=== PATIENT | male | born 1975 | race Caucasian/White ===

== ENCOUNTER 2017-11-16 17:46 | Emergency (ER) | payer SELFPAY ==
[2017-11-16] MEDS ORDERED: Diphtheria,Pertussis(Acell),Tetanus Vaccine 0.5 ML Syringe IM ONE (18:14)
[2017-11-16] MEDS ORDERED: Ketorolac 60 MG/2 ML SDV IM ONE (18:14)
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
[2017-11-16 19:26] LABS: CHLORIDE,CL 107 mmol/L (98-110); SODIUM,NA 137 mmol/L (136-146)
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
== END 2017-11-16 19:43 | disposition home or self-care (01) ==
LOC: MW.ED 17:46
DX: S06.9X9A Unspecified intracranial injury with loss of consciousness of unspecified duration, initial encounter (principal); S00.83XA Contusion of other part of head, initial encounter; S00.431A Contusion of right ear, initial encounter; S40.022A Contusion of left upper arm, initial encounter; S40.021A Contusion of right upper arm, initial encounter; S80.12XA Contusion of left lower leg, initial encounter; S80.11XA Contusion of right lower leg, initial encounter; F17.210 Nicotine dependence, cigarettes, uncomplicated; Z23 Encounter for immunization; Z88.0 Allergy status to penicillin; Y04.0XXA Assault by unarmed brawl or fight, initial encounter; Y99.0 Civilian activity done for income or pay
CPT/HCPCS: 36415; 70450; 73030; 80053; 85025; 90471; 96372; 99284; J1885

== ENCOUNTER 2018-04-27 01:14 | Emergency (ER) | payer SELFPAY ==
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
== END 2018-04-27 01:40 | disposition home or self-care (01) ==
LOC: MW.ED 01:14
DX: Z02.89 Encounter for other administrative examinations (principal); I10 Essential (primary) hypertension; Z88.0 Allergy status to penicillin
CPT/HCPCS: 99283

== ENCOUNTER 2019-06-09 10:43 | Emergency (ER) | payer SELFPAY ==
--- NOTE | 2019-06-09 10:59 | EDM.PDOC ---
ED HPI GENERAL MEDICAL PROBLEM - General Chief Complaint: Back Pain or Injury Stated Complaint: BACK PAIN Time Seen by Provider: 06/09/19 10:58 Source of Information: Reports: Patient History Limitations: Reports: No Limitations - History of Present Illness INITIAL COMMENTS - FREE TEXT/NARRATIVE: HISTORY AND PHYSICAL: History of present illness: Patient is a 43-year-old male presents to the ED with complaint of back injury. Patient states that 5 days ago he was on top of a pavement roller, it started moving so he jumped off. When he jumped he was hit in the back by the roller and projected 4 feet forward. He was not crushed by the roller. He states that he had an area of swelling to his low back about the size of a watermelon that has gone down but it is painful to touch. He denies any lower extremity pain/ tingling/weakness/numbness, saddle anesthesia, loss of bowel or bladder control , chest pain, shortness of breath, abdominal pain. He denies significant past medical history. Review of systems: As per history of present illness and below otherwise all systems reviewed and negative. Past medical history: As per history of present illness and as reviewed below otherwise noncontributory. Surgical history: As per history of present illness and as reviewed below otherwise noncontributory. Social history: No reported history of drug or alcohol abuse. Family history: As per history of present illness and as reviewed below otherwise noncontributory. Physical exam: General: Patient sitting comfortably in no acute distress and nontoxic appearing HEENT: Atraumatic, normocephalic, pupils reactive, negative for conjunctival pallor or scleral icterus, mucous membranes moist, throat clear, neck supple, nontender, trachea midline. No meningeal signs. Lungs: Clear to auscultation, breath sounds equal bilaterally, chest nontender. Heart: S1S2, regular, negative for clicks, rubs, or overt murmur. Abdomen: Soft, nondistended, nontender. Negative for masses or hepatosplenomegaly. Negative for costovertebral tenderness. No rigidity, rebound , guarding. Pelvis: Stable nontender. Genitourinary: Deferred. Rectal: Deferred. Spine: There is a large area of ecchymosis from the midback down to the top of the buttock extending all the way across from the left to right flanks. There is a [id number] area of fluid collection in the center of this ecchymosis with some serous weeping noted. Extremities: Atraumatic, negative for cords or calf pain. Neurovascular unremarkable. Lower extremity strength 5/5. No deficits noted. Neuro: Awake, alert, oriented. Cranial nerves II through XII unremarkable. Cerebellum unremarkable. Motor and sensory unremarkable throughout. Exam nonfocal. Notes: Dr. Mccollum consulted in ED and reviewed CT. Patient will follow up with her in 1 week. Diagnostics: CBC, CMP, PT/INR, PTT, UA, CT chest/abdomen/pelvis w/ contrast Therapeutics: none Prescriptions: none Impression: blunt trauma, subcutaneous hematoma low back, L4 spinous process fracture Plan: Follow up with Dr. Mccollum as discussed Return to ED as needed as discussed Definitive disposition and diagnosis as appropriate pending reevaluation and review of above. Lower Back Pain Score (Numeric/FACES): 3 - Related Data Allergies Allergy/AdvReac Type Severity Reaction Status Date / Time Penicillins Allergy Itching Verified 06/09/19 11:01 Home Meds: Home Meds . [No Known Home Meds] 11/16/17 [History] Past Medical History HEENT History: Reports: None Cardiovascular History: Reports: None Respiratory History: Reports: None Gastrointestinal History: Reports: None Genitourinary History: Reports: None Musculoskeletal History: Reports: Other (See Below) Other Musculoskeletal History: broke C7 Neurological History: Reports: None Psychiatric History: Reports: None Endocrine/Metabolic History: Reports: None Hematologic History: Reports: None Immunologic History: Reports: None Oncologic (Cancer) History: Reports: None Dermatologic History: Reports: None - Infectious Disease History Infectious Disease History: Reports: Chicken Pox - Past Surgical History Head Surgeries/Procedures: Reports: None HEENT Surgical History: Reports: None Cardiovascular Surgical History: Reports: None Respiratory Surgical History: Reports: None GI Surgical History: Reports: None Male Surgical History: Reports: None Endocrine Surgical History: Reports: None Neurological Surgical History: Reports: None Musculoskeletal Surgical History: Reports: None Oncologic Surgical History: Reports: None Dermatological Surgical History: Reports: None Social & Family History - Family History Family Medical History: Noncontributory - Caffeine Use Caffeine Use: Reports: Coffee, Energy Drinks ED ROS GENERAL - Review of Systems Review Of Systems: ROS reveals no pertinent complaints other than HPI. ED EXAM,LOWER BACK PAIN/INJURY - Physical Exam Exam: See Below (see dictation) Course - Vital Signs Last Recorded V/S: Last Vital Signs Temp 98.2 F 06/09/19 10:54 Pulse 91 06/09/19 10:54 Resp 18 06/09/19 10:54 BP 162/94 H 06/09/19 10:54 Pulse Ox 99 06/09/19 10:54 - Orders/Labs/Meds Orders: Active Orders 24 hr Category Date Time Status Notify Provider Consults [RC] ASDIRECTED Care 06/09/19 11:19 Active Consult to Physician [CONS] Stat Cons 06/09/19 11:19 Active UA RFX LEOPOLDO AND CULT IF INDIC [URIN] Stat Lab 06/09/19 11:07 Ordered Sodium Chloride 0.9% [Normal Saline] 1,000 ml Med 06/09/19 11:30 Active IV STAT Sodium Chloride 0.9% [Saline Flush] Med 06/09/19 11:07 Active 10 ml FLUSH ASDIRECTED PRN Sodium Chloride 0.9% [Saline Flush] Med 06/09/19 11:07 Active 2.5 ml FLUSH ASDIRECTED PRN Saline Lock Insert [OM.PC] Stat Oth 06/09/19 11:07 Ordered Medication Orders Sodium Chloride (Normal Saline) 1,000 mls @ 999 mls/hr IV STAT TOYIN Last Admin: 06/09/19 11:20 Dose: 999 mls/hr Sodium Chloride (Saline Flush) 10 ml FLUSH ASDIRECTED PRN PRN Reason: Keep Vein Open Last Admin: 06/09/19 11:20 Dose: 10 ml Sodium Chloride (Saline Flush) 2.5 ml FLUSH ASDIRECTED PRN PRN Reason: Keep Vein Open Last Admin: 06/09/19 11:20 Dose: 2.5 ml Labs: Laboratory Tests 06/09/19 06/09/19 06/09/19 Range/Units 11:14 11:14 11:14 WBC 9.03 (4.0-11.0) K/uL RBC 3.01 L (4.50-5.90) M/uL Hgb 9.6 L (13.0-17.0) g/dL Hct 28.9 L (38.0-50.0) % MCV 96.0 (80.0-98.0) fL MCH 31.9 (27.0-32.0) pg MCHC 33.2 (31.0-37.0) g/dL RDW Std Deviation 49.2 (28.0-62.0) fl RDW Coeff of Yany 14 (11.0-15.0) % Plt Count 221 (150-400) K/uL MPV 9.90 (7.40-12.00) fL Neut % (Auto) 70.0 (48.0-80.0) % Lymph % (Auto) 20.2 (16.0-40.0) % [place] % (Auto) 7.4 (0.0-15.0) % Eos % (Auto) 2.1 (0.0-7.0) % Baso % (Auto) 0.3 (0.0-1.5) % Neut # (Auto) 6.3 H (1.4-5.7) K/uL Lymph # (Auto) 1.8 (0.6-2.4) K/uL [place] # (Auto) 0.7 (0.0-0.8) K/uL Eos # (Auto) 0.2 (0.0-0.7) K/uL Baso # (Auto) 0.0 (0.0-0.1) K/uL Nucleated RBC % 0.0 /100WBC Nucleated RBCs # 0 K/uL INR 0.90 APTT 23.6 (18.6-31.3) SEC Sodium 142 (136-148) mmol/L Potassium 4.4 (3.5-5.1) mmol/L Chloride 107 (98-107) mmol/L Carbon Dioxide 27.9 (21.0-32.0) mmol/L BUN 13 (7.0-18.0) mg/dL Creatinine 1.0 (0.8-1.3) mg/dL Est Cr Clr Drug Dosing 122.51 mL/min Estimated GFR (MDRD) > 60.0 ml/min Glucose 99 (74-106) mg/dL Calcium 9.2 (8.5-10.1) mg/dL Total Bilirubin 0.5 (0.2-1.0) mg/dL AST 26 (15-37) IU/L ALT 41 (14-63) IU/L Alkaline Phosphatase 60 (46-116) U/L Total Protein 7.1 (6.4-8.2) g/dL Albumin 3.4 (3.4-5.0) g/dL Globulin 3.7 (2.6-4.0) g/dL Albumin/Globulin Ratio 0.9 (0.9-1.6) Meds: Medications Generic Name Dose Route Start Last Admin Trade Name Freq PRN Reason Stop Dose Admin Sodium Chloride 1,000 mls @ 999 mls/hr 06/09/19 11:30 06/09/19 11:20 Normal Saline IV 999 mls/hr STAT TOYIN Administration Sodium Chloride 10 ml 06/09/19 11:07 06/09/19 11:20 Saline Flush FLUSH 10 ml ASDIRECTED PRN Administration Keep Vein Open Sodium Chloride 2.5 ml 06/09/19 11:07 06/09/19 11:20 Saline Flush FLUSH 2.5 ml ASDIRECTED PRN Administration Keep Vein Open Discontinued Medications Generic Name Dose Route Start Last Admin Trade Name Freq PRN Reason Stop Dose Admin Iopamidol 100 ml 06/09/19 12:35 06/09/19 12:35 Isovue Multipack-370 (76%) IVPUSH 06/09/19 12:36 100 ml ONETIME ONE Administration Departure - Departure Time of Disposition: 13:13 Disposition: Home, Self-Care 01 Condition: Good Clinical Impression: Subcutaneous hematoma, Blunt trauma, Spinous process fracture - Discharge Information Referrals: PCP,Unknown [Primary Care Provider] - Sydnie Mccollum MD [Physician] - 1 Week Forms: ED Department Discharge Additional Instructions: The following information is given to patients seen in the emergency department who are being discharged to home. This information is to outline your options for follow-up care. We provide all patients seen in our emergency department with a follow-up referral. The need for follow-up, as well as the timing and circumstances, are variable depending upon the specifics of your emergency department visit. If you don't have a primary care physician on staff, we will provide you with a referral. We always advise you to contact your personal physician following an emergency department visit to inform them of the circumstance of the visit and for follow-up with them and/or the need for any referrals to a consulting specialist. The emergency department will also refer you to a specialist when appropriate. This referral assures that you have the opportunity for follow-up care with a specialist. All of these measure are taken in an effort to provide you with optimal care, which includes your follow-up. Under all circumstances we always encourage you to contact your private physician who remains a resource for coordinating your care. When calling for follow-up care, please make the office aware that this follow-up is from your recent emergency room visit. If for any reason you are refused follow-up, please contact the [facility] Emergency Department at and asked to speak to the emergency department charge nurse. [facility] [address] [place] [address] [id number] Activity as tolerated Follow up with Dr. Mccollum as discussed Return to ED as needed as discussed - My Orders Last 24 Hours: My Active Orders 06/09/19 11:07 UA RFX LEOPOLDO AND CULT IF INDIC [URIN] Stat Sodium Chloride 0.9% [Saline Flush] 10 ml FLUSH ASDIRECTED PRN Sodium Chloride 0.9% [Saline Flush] 2.5 ml FLUSH ASDIRECTED PRN Saline Lock Insert [OM.PC] Stat 06/09/19 11:19 Notify Provider Consults [RC] ASDIRECTED Consult to Physician [CONS] Stat 06/09/19 11:30 Sodium Chloride 0.9% [Normal Saline] 1,000 ml IV STAT - Assessment/Plan Last 24 Hours: My Active Orders 06/09/19 11:07 UA RFX LEOPOLDO AND CULT IF INDIC [URIN] Stat Sodium Chloride 0.9% [Saline Flush] 10 ml FLUSH ASDIRECTED PRN Sodium Chloride 0.9% [Saline Flush] 2.5 ml FLUSH ASDIRECTED PRN Saline Lock Insert [OM.PC] Stat 06/09/19 11:19 Notify Provider Consults [RC] ASDIRECTED Consult to Physician [CONS] Stat 08/17/19 11:30 Sodium Chloride 0.9% [Normal Saline] 1,000 ml IV STAT
[2019-06-09] MEDS ORDERED: Sodium Chloride 0.9% 10 ML Syringe FLUSH PRN (11:07)
[2019-06-09] MEDS ORDERED: Sodium Chloride 0.9% 2.5 ML Syringe FLUSH PRN (11:07)
[2019-06-09] MEDS ORDERED: Sodium Chloride 0.9% 1,000 ML IV SCH (11:30)
[2019-06-09 11:46] LABS: CHLORIDE,CL 107 mmol/L (98-107); SODIUM,NA 142 mmol/L (136-148)
--- NOTE | 2019-06-09 12:19 | PCM.CONS ---
H&P History of Present Illness - General Date of Service: 06/09/19 Source of Information: Patient History Limitations: Reports: No Limitations - History of Present Illness Initial Comments - Free Text/Narative: Patient is a 43 year old male who fell off some heavy equipment on Tuesday. He denies LOC but fell onto a object striking his lower back. It has been painful but this has been controlled with ibuprofen OTC. He denies loss of motor function, sensory deficits, or paresthesias. He denies bowel or bladder issues. He had a friend over who looked at the area and was concerned about the amount of swelling and bruising. He came to the ER to be examined. Lower Back Pain Score (Numeric/FACES): 3 - Related Data Allergies/Adverse Reactions: Allergies Allergy/AdvReac Type Severity Reaction Status Date / Time Penicillins Allergy Itching Verified 06/09/19 11:01 Home Medications: Home Meds . [No Known Home Meds] 11/16/17 [History] Past Medical History HEENT History: Reports: None Cardiovascular History: Reports: None Respiratory History: Reports: None Gastrointestinal History: Reports: None Genitourinary History: Reports: None Musculoskeletal History: Reports: Other (See Below) Other Musculoskeletal History: broke C7 Neurological History: Reports: None Psychiatric History: Reports: None Endocrine/Metabolic History: Reports: None Hematologic History: Reports: None Immunologic History: Reports: None Oncologic (Cancer) History: Reports: None Dermatologic History: Reports: None - Infectious Disease History Infectious Disease History: Reports: Chicken Pox - Past Surgical History Head Surgeries/Procedures: Reports: None HEENT Surgical History: Reports: None Cardiovascular Surgical History: Reports: None Respiratory Surgical History: Reports: None GI Surgical History: Reports: None Male Surgical History: Reports: None Endocrine Surgical History: Reports: None Neurological Surgical History: Reports: None Musculoskeletal Surgical History: Reports: None Oncologic Surgical History: Reports: None Dermatological Surgical History: Reports: None Social & Family History - Family History Family Medical History: Noncontributory - Tobacco Use Smoking Status *Q: Current Every Day Smoker Tobacco Use Within Last Twelve Months: Smokeless Tobacco Years of Tobacco use: 25 Packs/Tins Daily: 0.5 Used Tobacco, but Quit: No - Caffeine Use Caffeine Use: Reports: Coffee, Energy Drinks - Recreational Drug Use Recreational Drug Use: Yes Drug Use in Last 12 Months: Yes Recreational Drug Type: Reports: Marijuana/Hashish Recreational Drug Use Frequency: Daily H&P Review of Systems - Review of Systems: Review Of Systems: ROS reveals no pertinent complaints other than HPI. Exam - Exam Exam: See Below - Vital Signs Vital Signs: Last Vital Signs Temp 36.8 C 06/09/19 10:54 Pulse 91 06/09/19 10:54 Resp 18 06/09/19 10:54 BP 162/94 H 06/09/19 10:54 Pulse Ox 99 06/09/19 10:54 Weight: 113.398 kg - Exam General: Alert, Oriented, Cooperative HEENT: Conjunctiva Clear, Hearing Intact, Mucosa Moist & [place], Nares Patent, Normal Nasal Septum, Pupils Equal, Pupils Reactive Lungs: Normal Respiratory Effort Cardiovascular: Regular Rate GI/Abdominal Exam: Soft, Non-Tender, No Distention, No Mass Back Exam: Other (ecchymosis across lower back and a swelling/fluctant area over the sacrum. Some small blisters over the sacrum that have burst. No cellulitis. ). No: Decreased Range of Motion, Muscle Spasm, Paraspinal Tenderness, Vertebral Tenderness Extremities: Normal Inspection, Normal Range of Motion Neurological: Reflexes Unequal Neuro Extensive - Mental Status: Alert Neuro Extensive - Motor, Sensory, Reflexes: No: Motor/Sensory Deficits Psychiatric: Alert, Normal Affect, Normal Mood - Patient Data Lab Results Last 24 hrs: Laboratory Results - last 24 hr 06/09/19 06/09/19 06/09/19 Range/Units 11:14 11:14 11:14 WBC 9.03 (4.0-11.0) K/uL RBC 3.01 L (4.50-5.90) M/uL Hgb 9.6 L (13.0-17.0) g/dL Hct 28.9 L (38.0-50.0) % MCV 96.0 (80.0-98.0) fL MCH 31.9 (27.0-32.0) pg MCHC 33.2 (31.0-37.0) g/dL RDW Std Deviation 49.2 (28.0-62.0) fl RDW Coeff of Yany 14 (11.0-15.0) % Plt Count 221 (150-400) K/uL MPV 9.90 (7.40-12.00) fL Neut % (Auto) 70.0 (48.0-80.0) % Lymph % (Auto) 20.2 (16.0-40.0) % [place] % (Auto) 7.4 (0.0-15.0) % Eos % (Auto) 2.1 (0.0-7.0) % Baso % (Auto) 0.3 (0.0-1.5) % Neut # (Auto) 6.3 H (1.4-5.7) K/uL Lymph # (Auto) 1.8 (0.6-2.4) K/uL [place] # (Auto) 0.7 (0.0-0.8) K/uL Eos # (Auto) 0.2 (0.0-0.7) K/uL Baso # (Auto) 0.0 (0.0-0.1) K/uL Nucleated RBC % 0.0 /100WBC Nucleated RBCs # 0 K/uL INR 0.90 APTT 23.6 (18.6-31.3) SEC Sodium 142 (136-148) mmol/L Potassium 4.4 (3.5-5.1) mmol/L Chloride 107 (98-107) mmol/L Carbon Dioxide 27.9 (21.0-32.0) mmol/L BUN 13 (7.0-18.0) mg/dL Creatinine 1.0 (0.8-1.3) mg/dL Est Cr Clr Drug Dosing 122.51 mL/min Estimated GFR (MDRD) > 60.0 ml/min Glucose 99 (74-106) mg/dL Calcium 9.2 (8.5-10.1) mg/dL Total Bilirubin 0.5 (0.2-1.0) mg/dL AST 26 (15-37) IU/L ALT 41 (14-63) IU/L Alkaline Phosphatase 60 (46-116) U/L Total Protein 7.1 (6.4-8.2) g/dL Albumin 3.4 (3.4-5.0) g/dL Globulin 3.7 (2.6-4.0) g/dL Albumin/Globulin Ratio 0.9 (0.9-1.6) Result Diagrams: 06/09/19 11:14 06/09/19 11:14 Consult PN Assessment/Plan Procedures: Procedures COMPLETE CBC W/AUTO DIFF WBC (11/16/17) COMPREHEN METABOLIC PANEL (11/16/17) CT HEAD/BRAIN W/O DYE (11/16/17) EMERGENCY DEPT VISIT (04/27/18) EMERGENCY DEPT VISIT (11/16/17) IMMUNIZATION ADMIN (11/16/17) ROUTINE VENIPUNCTURE (11/16/17) THER/PROPH/DIAG INJ SC/IM (11/16/17) X-RAY EXAM OF SHOULDER (11/16/17) (1) Spinous process fracture SNOMED Code(s): 33617668 Code(s): XLR4525 - (2) Subcutaneous hematoma SNOMED Code(s): 4208151 Code(s): T14.8XXA - OTHER INJURY OF UNSPECIFIED BODY REGION, INITIAL ENCOUNTER Problem List Initiated/Reviewed/Updated: Yes Plan: The patient had a possible small SP fracture on L4 and a large hematoma. He should continue to watch the area for signs of skin compromise (cellulitis, darkening). I will see him in clinic in 1-2 weeks for a wound check.
[2019-06-09] MEDS ORDERED: Iopamidol 755 MG/ML 500 ML Multipack Bottle IVPUSH ONE (12:35)
--- NOTE | 2019-06-09 13:04 | CT ---
Indication: Trauma, pain Technique: Routine post-contrast CT chest. 100 cc Isovue 370 intravenously. Please note that all CT scans at this facility use dose modulation, iterative reconstruction, and/or weight-based dosing when appropriate to reduce radiation dose to as low as reasonably achievable. Comparison: None Findings: Patient is scanned in the prone position due to discomfort. Vertebral bodies are intact. No spinous process fracture. No sternal fracture. No adenopathy. No pleural or pericardial effusion. No aortic pathology. Lungs clear. Normal upper abdomen. No suspicious nodule or airspace disease. No rib fracture. Impression: Normal CT chest with contrast. No traumatic injury. Please note that all CT scans at this facility use dose modulation, iterative reconstruction, and/or weight-based dosing when appropriate to reduce radiation dose to as low as reasonably achievable. Dictated by Ezio Bangura MD @ Jun 09 2019 12:58PM Signed by Dr. Ezio Bangura @ Jun 09 2019 1:03PM
--- NOTE | 2019-06-09 13:06 | CT ---
Indication: Hit lower back my jumping out of equipment. Extreme bruising. Technique: Multiple contiguous axial images were obtained from the lung bases through the symphysis pubis after the intravenous administration 100 milliliters Isovue 370. Please note that all CT scans at this facility use dose modulation, iterative reconstruction, and/or weight-based dosing when appropriate to reduce radiation dose to as low as reasonably achievable. Comparison: None Findings: The lung bases are clear. The heart is normal in size. No pericardial effusions identified. The liver, gallbladder, spleen, pancreas, adrenals, and kidneys are normal. No intrahepatic biliary ductal dilatation is identified. No hydronephrosis is seen. In the pelvis, the urinary bladder is normal. The prostate gland is normal. The small and large bowel are normal in caliber. No free air or free fluid is identified within the abdomen or pelvis. The aorta is normal in caliber. No lower rib fractures are identified. A subtle fracture of the spinous process of L4 is identified posteriorly this is best seen on image 97, series 302. The vertebral body heights of the lumbar spine are well maintained. The intervertebral disc space heights are well maintained. No acute fracture or subluxation is identified. A hematoma is identified posterior to the level of the sacrum and lower lumbar spine. This measures approximately 11.7 x 4.9 x 15 cm. Subcutaneous fat stranding is identified surrounding this and inferior to this, consistent with the patient`s known bruising. Impression: Very subtle suspected fracture of the very posterior aspect of the spinous process of L4. Subcutaneous hematoma. No intra abdominal injury. Please note that all CT scans at this facility use dose modulation, iterative reconstruction, and/or weight-based dosing when appropriate to reduce radiation dose to as low as reasonably achievable. Dictated by Vannesa Dunne MD @ Jun 09 2019 12:51PM Signed by Dr. Vannesa Dunne @ Jun 09 2019 1:04PM
== END 2019-06-09 13:23 | disposition home or self-care (01) ==
LOC: MW.ED 10:43
DX: S32.049A Unspecified fracture of fourth lumbar vertebra, initial encounter for closed fracture (principal); Z88.0 Allergy status to penicillin; W22.8XXA Striking against or struck by other objects, initial encounter
CPT/HCPCS: 36415; 71260; 74177; 80053; 85025; 85610; 85730; 96360; 96361; 99284; J7040; Q9967

== ENCOUNTER 2020-02-10 19:10 | Emergency (ER) | payer SELFPAY ==
--- NOTE | 2020-02-10 19:34 | EDM.PDOC ---
ED [facility] GENERAL MEDICAL PROBLEM - General Chief Complaint: General Stated Complaint: MEDICAL CLEARANCE Time Seen by Provider: 02/10/20 19:25 Source of Information: Reports: Patient, Police History Limitations: Reports: No Limitations - History of Present Illness INITIAL COMMENTS - FREE TEXT/NARRATIVE: Patient is a 44-year-old male no significant past medical history presenting with a chief complaint of medical clearance. Patient is under police custody for "dancing in his yard" and being intoxicated. Patient denies any medical complaints and states he feels fine other than having a broken heart from depression. Patient denies any chest pain or shortness of breath. Patient otherwise feels fine. Patient denies any drug use. Patient reports drinking a few alcoholic beverages earlier this evening. Patient denies any injury. Pmhx: HTN Pshx: None Family Hx: noncontributory Smoking history? no Etoh use? Occasional Drug use? Occasional marijuana In addition to that documented in the HPI above, the additional ROS was obtained : Constitutional: Denies fevers or chills Eyes: Denies vision changes ENMT: Denies sore throat CV: Denies chest pain Resp: Denies SOB GI: Denies vomiting or diarrhea : Denies painful urination MSK: Denies recent trauma Skin: Denies new rashes Neuro: Denies new numbness or tingling or weakness Endocrine: Denies unexpected weight loss Heme: Denies bleeding disorders I have reviewed the triage vital signs Const: No slurring of speech, well nourished, well developed, appears stated age Eyes: PERRL, no conjunctival injection HENT: No evidence of head trauma, NCAT, Neck supple without meningismus CV: RRR, Warm, well-perfused extremities RESP: CTAB, Unlabored respiratory effort GI: soft, non-tender, non-distended, no masses MSK: No gross deformities appreciated Skin: Warm, dry. 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 Sensation and motor function of extremities grossly intact. Psych: Appropriate mood and affect Assessment and plan: Patient is 44-year-old male presenting for medical clearance. Patient is under police custody and does not have any medical complaints at this time. Patient has no obvious injuries noted on exam. While patient may have some alcohol consumption prior to arrival he is not overtly intoxicated and does not demonstrate any signs of alcohol withdrawal. Patient is not a daily drinker. Patient does seem to have some underlying depression but is not suicidal or homicidal. Patient was instructed that he should follow-up with a psychiatrist as an outpatient. All questions were addressed and answered. Patient agrees with plan. - Related Data Allergies Allergy/AdvReac Type Severity Reaction Status Date / Time Penicillins Allergy Itching Verified 02/10/20 19:34 Home Meds: Home Meds . [No Known Home Meds] 11/16/17 [History] Past Medical History HEENT History: Reports: None Cardiovascular History: Reports: None Respiratory History: Reports: None Gastrointestinal History: Reports: None Genitourinary History: Reports: None Musculoskeletal History: Reports: Other (See Below) Other Musculoskeletal History: broke C7 Neurological History: Reports: None Psychiatric History: Reports: None Endocrine/Metabolic History: Reports: None Hematologic History: Reports: None Immunologic History: Reports: None Oncologic (Cancer) History: Reports: None Dermatologic History: Reports: None - Infectious Disease History Infectious Disease History: Reports: Chicken Pox - Past Surgical History Head Surgeries/Procedures: Reports: None HEENT Surgical History: Reports: None Cardiovascular Surgical History: Reports: None Respiratory Surgical History: Reports: None GI Surgical History: Reports: None Male Surgical History: Reports: None Endocrine Surgical History: Reports: None Neurological Surgical History: Reports: None Musculoskeletal Surgical History: Reports: None Oncologic Surgical History: Reports: None Dermatological Surgical History: Reports: None Social & Family History - Family History Family Medical History: Noncontributory - Caffeine Use Caffeine Use: Reports: Coffee, Energy Drinks ED ROS GENERAL - Review of Systems Review Of Systems: See Below ED EXAM, GENERAL - Physical Exam Exam: See Below Course - Vital Signs Last Recorded V/S: Last Vital Signs Temp 36.4 C 02/10/20 19:30 Pulse 111 H 02/10/20 19:30 Resp 20 02/10/20 19:30 BP 139/113 H 02/10/20 19:30 Pulse Ox 93 L 02/10/20 19:30 Departure - Departure Time of Disposition: 19:33 Disposition: Home, Self-Care 01 Clinical Impression: Medical clearance for incarceration - Discharge Information Instructions: Medical Screening Exam Referrals: PCP,None [Primary Care Provider] - Forms: ED Department Discharge Additional Instructions: The following information is given to patients seen in the emergency department who are being discharged to home. This information is to outline your options for follow-up care. We provide all patients seen in our emergency department with a follow-up referral. The need for follow-up, as well as the timing and circumstances, are variable depending upon the specifics of your emergency department visit. If you don't have a primary care physician on staff, we will provide you with a referral. We always advise you to contact your personal physician following an emergency department visit to inform them of the circumstance of the visit and for follow-up with them and/or the need for any referrals to a consulting specialist. The emergency department will also refer you to a specialist when appropriate. This referral assures that you have the opportunity for follow-up care with a specialist. All of these measure are taken in an effort to provide you with optimal care, which includes your follow-up. Under all circumstances we always encourage you to contact your private physician who remains a resource for coordinating your care. When calling for follow-up care, please make the office aware that this follow-up is from your recent emergency room visit. If for any reason you are refused follow-up, please contact the [facility] Emergency Department at and asked to speak to the emergency department charge nurse. Sepsis Event Note - Focused Exam Vital Signs: Vital Signs Temp Pulse Resp BP Pulse Ox 02/10/20 19:30 36.4 C 111 H 20 139/113 H 93 L Date Exam was Performed: 02/10/20 Time Exam was Performed: 19:44
== END 2020-02-10 19:45 | disposition home or self-care (01) ==
LOC: MW.ED 19:10
DX: Z02.89 Encounter for other administrative examinations (principal); Z88.0 Allergy status to penicillin
CPT/HCPCS: 99282; 99283